=== PATIENT | female | born 1990 | race American Indian/Alaskan Native ===

== ENCOUNTER 2022-02-16 01:06 | Emergency (ER) | payer MEDICAID ==
[2022-02-16 01:54] VITALS: BP 150/90
== END 2022-02-16 07:00 | disposition left against medical advice (07) ==
LOC: ED 01:06
DX: J02.9 Acute pharyngitis, unspecified (principal); Z53.21 Procedure and treatment not carried out due to patient leaving prior to being seen by health care provider